=== PATIENT | male | born 1970 | race Caucasian/White ===

== ENCOUNTER 2019-04-02 14:06 | Emergency (ER) | payer OTHER ==
[2019-04-02 14:50] VITALS: BP 139/80
[2019-04-02] MEDS ORDERED: Ketorolac INJ* 30 MG/ML 1 ML VIAL IM ONE (14:58)
--- NOTE | 2019-04-02 15:04 | UC ---
Knee Pain HPI - HPI Summary HPI Summary: Pt has a history of a partially torn patellar ligament from 2 years ago. He had an MRI to confirm this. This past Thursday, he hit just below the patella against the drawer of his desk and had immediate pain just below the right patella. It has since become swollen. He has difficulty lifting his leg. He has an orthopedist in [place], [place] and will be going back home tomorrow. - History of Current Complaint Chief Complaint: UCLowerExtremity Stated Complaint: RIGHT KNEE COMPLAINT Time Seen by Provider: 04/02/19 14:33 Hx Obtained From: Patient Onset/Duration: Gradual Onset Severity Initially: Mild Severity Currently: Moderate Pain Intensity: 8 Character: Dull, Aching Aggravating Factor(s): Movement, Weight Bearing Alleviating Factor(s): Nothing Associated Signs And Symptoms: Positive: Swelling, Redness - Mild erythema Able to Bear Weight: Yes - but with pain - Allergies/Home Medications Allergies/Adverse Reactions: Allergies Allergy/AdvReac Type Severity Reaction Status Date / Time No Known Allergies Allergy Verified 04/02/19 14:33 Home Medications: Home Medications Meloxicam [Mobic] 15 mg PO DAILY 04/02/19 [History Confirmed 04/02/19] PMH/Surg Hx/FS Hx/Imm Hx Previously Healthy: Yes - Surgical History Surgical History: None - Family History Known Family History: Positive: Non-Contributory - Social History Alcohol Use: Occasionally Substance Use Type: None Smoking Status (MU): Never Smoked Tobacco Review of Systems All Other Systems Reviewed And Are Negative: Yes Motor: Positive: Other - able to bear weight but with pain. He states his knee has given out a few times. Musculoskeletal: Positive: Decreased ROM - Unable to lift leg up without pain Is Patient Immunocompromised?: No Physical Exam Triage Information Reviewed: Yes Appearance: Well-Appearing, No Pain Distress, Well-Nourished Vital Signs: Initial Vital Signs Temp 97.8 F 04/02/19 14:37 Pulse 90 04/02/19 14:37 Resp 18 04/02/19 14:37 BP 139/80 04/02/19 14:37 Pulse Ox 98 04/02/19 14:37 Vital Signs Reviewed: Yes Musculoskeletal: Positive: Other: - Good periph pulses, neurosensation, caprefill. Right knee swollen and tender on palpation just below patella and medially. Henry is mildly warm to touch. Liganment appear intact however, pt only able to lift right leg about 2 inches off the floor. When pt hit his knee, there was no abrasion or wound caused by the injury Skin: Positive: Other - see above notes Knee Pain Course/Dx - Course Course Of Treatment: Right knee x-ray:REPORT AND IMPRESSION: #. Probable small joint effusion. #. Negative for fracture or malalignment. #. No significant arthropathic change evident. #. Mild anterior soft tissue swelling. Knee immobilizer applied, Ice applied. Toradol 30 mg IM given for pain. To continue Motrin 600mg p.o. every 8 hours and follow up with Orthopedist in [place] on Thursday. X-ray disc given to patient Pt also preferred to be non-weight bearing so crutches were given as well - Differential Dx/Diagnosis Provider Diagnosis: Right knee sprain Discharge ED - Sign-Out/Discharge Documenting (check all that apply): Patient Departure All imaging exams completed and their final reports reviewed: Yes - Discharge Plan Condition: Fair Disposition: HOME Prescriptions: Ibuprofen TAB* [Motrin TAB* 600 MG] 600 mg PO Q8H PRN #21 tab PRN Reason: Pain - Moderate Patient Education Materials: Knee Sprain (DC) Referrals: No Primary Care Phys,NOPCP [Primary Care Provider] - Additional Instructions: Ice to right knee intermittently throughout the weekend, limit ambulation, elevate as much as possible. Follow up with your orthopedist on Thursday. - Billing Disposition and Condition Condition: FAIR Disposition: Home - Attestation Statements Provider Attestation: Per institutional requirements, I have reviewed the chart, however, I was not consulted specifically or made aware of this patient by the midlevel provider. I did not personally evaluate, interact with , or disposition this patient.
== END 2019-04-02 15:34 | disposition home or self-care (01) ==
LOC: UCCORT 14:06
DX: S83.8X1A Sprain of other specified parts of right knee, initial encounter (principal); W22.03XA Walked into furniture, initial encounter; Y92.9 Unspecified place or not applicable
CPT/HCPCS: 96372; 99203; G0463; J1885